=== PATIENT | female | born 1940 | race Two or more races ===

== ENCOUNTER 2019-10-22 16:03 | Emergency (ER) | payer OTHER ==
[~2019-10-22] VITALS: Ht 152.4 cm; Wt 66.2 kg
[2019-10-22 16:14] VITALS: Ht 152.4 cm; Wt 66.2 kg
[2019-10-22 17:20] LABS: CARBON DIOXIDE 27.5 mmol/L (21-32); CHLORIDE SERUM 102 mmol/L (98-107); CREATININE SERUM 0.9 mg/dL (0.6-1.0); GLUCOSE SERUM 103 mg/dL (74-106); POTASSIUM SERUM 4.5 mmol/L (3.5-5.1); SODIUM SERUM 139 mmol/L (136-145)
[2019-10-22 17:24] LABS: ALBUMIN 3.8 g/dL (3.4-5.0); ALKALINE PHOSPHATASE 81 U/L (46-116); ALT/SGPT 32 U/L (14-59); AST/SGOT 17 U/L (15-37); BILIRUBIN TOTAL 0.63 mg/dL (0.20-1.00); LIPASE 170 IU/L (73-393); TOTAL PROTEIN, SERUM 7.1 g/dL (6.4-8.2)
[2019-10-22 17:32] LABS: UA SPECIFIC GRAVITY <=1.005 (1.005-1.035); microscopic required? YES; urine erythrocyte NEGATIVE (NEGATIVE)
[2019-10-22 17:37] LABS: BASOPHIL % 0.4 % (0-2); PLATELET COUNT 200 x10^3mcL (130-400)
[2019-10-22 17:40] LABS: RED CELL DISTRIBUTION WIDTH 14.7 % (11.5-14.5)
[2019-10-22 18:00] VITALS: BP 112/61
== END 2019-10-22 18:00 | disposition home or self-care (01) ==
LOC: ED 16:03
PROVIDERS: Emergency Medicine
DX: K59.00 Constipation, unspecified (principal); N39.0 Urinary tract infection, site not specified; I10 Essential (primary) hypertension; E03.9 Hypothyroidism, unspecified; Z98.890 Other specified postprocedural states
CPT/HCPCS: J7030; Q0092

== ENCOUNTER 2019-10-24 20:49 | Emergency (ER) | payer OTHER, SELFPAY ==
[~2019-10-24] VITALS: Ht 162.6 cm; Wt 63.5 kg
[2019-10-24 20:53] VITALS: Ht 162.6 cm; Wt 63.5 kg
[2019-10-24 22:23] VITALS: BP 132/87
== END 2019-10-24 22:00 | disposition home or self-care (01) ==
LOC: ED 20:49
DX: U07.1 COVID-19 (principal); E03.9 Hypothyroidism, unspecified; I10 Essential (primary) hypertension; Z85.3 Personal history of malignant neoplasm of breast
CPT/HCPCS: U0003-CS